=== PATIENT | male | born 1945 | race Caucasian/White ===

== ENCOUNTER 2024-03-17 08:03 | Observation (INO) ==
[2024-03-17 09:25] LABS: Rapid Strep Molecular Negative (Negative)
[2024-03-17] MEDS: Dexamethasone IV 4 MG/ML VIAL 1 ml VIAL IV SLOW PU ONE (09:26)
[2024-03-17] MEDS: Piperacillin/Tazobac 3.375 BAG 3.375 GM/100 ML BAG IV ONE (09:32)
[2024-03-17] MEDS: Iodixanol (CONTRAST) 320 MG/ML 100 ML SDV IV ONE (09:53)
[2024-03-17 10:32] LABS: ABS Basophils 0.1 10^3/uL (0.0-0.1); ABS Eosinophils 0.1 10^3/uL (0.0-0.5); ABS Monocytes 0.8 10^3/uL (0.0-1.1); ABS Neutrophils 6.1 10^3/uL (1.5-7.6); ABS Nucleated RBC 0.01 10^3/ul; Eosinophil % 1.6 %; Hematocrit 45.9 % (38-53); Hemoglobin 15.6 g/dL (13.2-16.3); Lymphocyte % 12.7 %; Mean Corpuscular Hemoglobin 32.2 pg (27-33); Mean Corpuscular Volume 94.5 fL (80-97); Mean Platelet Volume 7.7 fL (7.5-11.2); Nucleated Red Blood Cells % 0.1 %/100WBC (0.0-0.8); Platelet Count 217 10^3/uL (150-450); Red Blood Count 4.85 10^6/uL (4.06-5.63); Red Cell Distribution Width 14.3 % (12-17); White Blood Count 8.2 10^3/uL (3.6-10.2)
[2024-03-17] MEDS: Clindamycin 900 MG/D5W BAG 900 MG/50 ML BAG IVPB ONE (11:11)
[2024-03-17 11:12] LABS: Albumin/Globulin Ratio 1.4 (1-3); Calcium 8.9 mg/dL (8.6-10.3); Creatinine, Serum 0.84 mg/dL (0.67-1.17); Globulin 2.8 g/dL (2-4); Potassium 4.1 mmol/L (3.5-5.0); Total Bilirubin 1.3 mg/dL (0.2-1.0); Total Protein 6.8 g/dL (6.4-8.9); eGFR CKD-EPI 88.7 (>60)
[2024-03-17] MEDS ORDERED: Ondansetron 4 mg VIAL 2 MG/ML 2 ml VIAL IV PRN (11:13)
[2024-03-17] MEDS: cefTRIAXone 1 gm/50 mL D5W 1 GM/50 ML BAG IV ONE (11:50)
[2024-03-17] MEDS: Dexamethasone IV 4 MG/ML VIAL 1 ml VIAL IV SLOW PU SCH (15:45)
[2024-03-17] MEDS: Clindamycin 900 MG/D5W BAG 900 MG/50 ML BAG IVPB SCH (18:55)
[2024-03-17] MEDS: Labetalol 300 mg TAB PO SCH (21:40)
[2024-03-18 05:56] LABS: ABS Lymphocytes 0.7 10^3/uL (1.0-4.8); ABS Monocytes 0.2 10^3/uL (0.0-1.1); ABS Neutrophils 8.2 10^3/uL (1.5-7.6); Hemoglobin 13.8 g/dL (13.2-16.3); Lymphocyte % 7.8 %; Mean Corpuscular Hemoglobin 32.4 pg (27-33); Mean Corpuscular Hgb Conc 34.5 g/dL (31-36); Mean Corpuscular Volume 93.9 fL (80-97); Mean Platelet Volume 8.1 fL (7.5-11.2); Platelet Count 202 10^3/uL (150-450); Red Blood Count 4.26 10^6/uL (4.06-5.63); Red Cell Distribution Width 14.3 % (12-17); White Blood Count 9.1 10^3/uL (3.6-10.2)
[2024-03-18 06:24] LABS: Calcium 8.4 mg/dL (8.6-10.3); Creatinine, Serum 0.71 mg/dL (0.67-1.17); Magnesium 1.6 mg/dL (1.9-2.7); Potassium 3.9 mmol/L (3.5-5.0); eGFR CKD-EPI 93.3 (>60)
[2024-03-18] MEDS: Magnesium Sulf 4 GM/100 ML IV 4,000 MG/100 ML BAG IVPB ONE (11:55)
[2024-03-18] MEDS ORDERED: Dexamethasone IV 4 MG/ML VIAL 1 ml VIAL IV SLOW PU SCH (16:00)
[2024-03-18] MEDS: Clindamycin 900 MG/D5W BAG 900 MG/50 ML BAG IVPB SCH (21:52)
[2024-03-19 09:15] LABS: ABS Lymphocytes 0.9 10^3/uL (1.0-4.8); ABS Monocytes 0.7 10^3/uL (0.0-1.1); ABS Neutrophils 14.7 10^3/uL (1.5-7.6); Hematocrit 40.5 % (38-53); Hemoglobin 13.7 g/dL (13.2-16.3); Lymphocyte % 5.8 %; Mean Corpuscular Hemoglobin 31.9 pg (27-33); Mean Corpuscular Hgb Conc 33.7 g/dL (31-36); Mean Corpuscular Volume 94.7 fL (80-97); Mean Platelet Volume 8.1 fL (7.5-11.2); Platelet Count 206 10^3/uL (150-450); Red Blood Count 4.28 10^6/uL (4.06-5.63); Red Cell Distribution Width 14.4 % (12-17); White Blood Count 16.4 10^3/uL (3.6-10.2)
[2024-03-19 09:30] LABS: Calcium 8.1 mg/dL (8.6-10.3); Creatinine, Serum 0.89 mg/dL (0.67-1.17); Magnesium 2.1 mg/dL (1.9-2.7); Potassium 3.7 mmol/L (3.5-5.0); eGFR CKD-EPI 87.2 (>60)
[2024-03-19 10:03] VITALS: BP 152/83
== END 2024-03-19 12:30 | disposition home or self-care (01) ==
LOC: EDHOLD 08:03 → ED 08:03 → SUATTDRO 11:13 → MED 03-18 12:28
PROVIDERS: ADMIT Student in an Organized Health Care Education/Training Program; ATTEND Internal Medicine